=== PATIENT | male | born 1965 | race Caucasian/White ===

== ENCOUNTER → 2017-02-08 14:55 | Outpatient (CLI) | payer BC ==
[2016-02-06 06:11] VITALS: BMI 34.7
[~2017-02-08 14:55] MED LIST: AMBIEN10 MG PO; ARTIFICIAL TEAR15 ML EACH EYE; BACTRIM DS TABL1 TAB PO; CARTIA XT240 MG PO; CATAPRES0.1 MG PO; COUMADIN4 MG PO; COUMADIN6 MG PO; COZAAR50 MG PO; DULCOLAX10 MG/SUPP RC; FISH OIL 1,2001 CA1 PO; FLAGYL250 MG PO; K-DUR20 MEQ PO; LASIX20 MG PO; LEXAPRO10 MG PO; LOMOTIL TABLET1 TAB PO; LONITEN2.5 MG PO; METOPROLOL TAR100 MG PO; MYCOSTATIN CREA15 GM TP; NORVASC10 MG PO; OXYCODONE HCL5 MG PO; PROCARDIA XL60 MG PO; PROTEIN LIQUID30 ML PO; QUESTRAN LIGH4 G/PKT PO; QUESTRAN PACK4 G/PKT PO; TRANSDERM-SCOP1.5 MG TD; TYLENOL W/CODEI1 TAB PO; XANAX0.5 MG PO; ZOCOR10 MG PO; ZYLOPRIM300 MG PO
== END | disposition home or self-care (01) ==
LOC: D.CT 14:55
DX: R04.2 Hemoptysis (principal)

== ENCOUNTER → 2019-03-12 10:23 | Outpatient (CLI) | payer BC ==
[2016-02-06 06:11] VITALS: BMI 34.7
[~2019-03-12 10:23] MED LIST changes: +BUMEX2 MG PO; +FOLBIC RF TABL1 EACH PO; +MELATONIN10 M1 PO; +TIROSINT25 MCG PO; +ZYLOPRIM100 MG PO
--- NOTE | 2019-03-13 17:17 | EC ---
PATIENT:BRYSON DENNY DATE OF SERVICE: 03/12/19 SEX: M MEDICAL RECORD: [id number] DATE OF : [birth year] LOCATION:D. AGE OF PATIENT: 53 ADMISSION DATE: 03/12/19 REFERRING PHYSICIAN: INTERPRETING PHYSICIAN: CHRIS KOEHLER MD ECHOCARDIOGRAM REPORT ECHO CHARGES 4 ECHO COMPLETE Date: 03/12/19 CLINICAL DIAGNOSIS: MURMUR/HTN H/O AORTA DISSECTION REPAIR ECHOCARDIOGRAPHIC MEASUREMENTS (adult normal given) AC root (d.<3.7cm) 4.7 cm LV Septum d (<1.2 cm> 1.7 cm Valve Excursion 2.4 cm LV Septum (systole) 2.1 cm Left Atria (s.<4.0cm> 4.4 cm LVPW d(<1.2cm) 1.6 cm RV (d.<2.3cm) 3.1 cm LVPW (sytole) 2.2 cm LV diastole(<5.6CM) 6.5 cm MV E-F(>70mm/sec) cm LV systole 4.2 cm LVOT Diameter 2.5 cm MV exc.(>10mm) cm Est.ejection fraction (50-75%) % DOPPLER: LVIT cm/sec A 59.0 cm/sec E 71.0 cm/sec LA cm/sec RVSP 38.0 mmHg LVOT 143 cm/sec AOP1/2T 815.0m/s Asc. Ao 220 cm/sec RVOT 71.0 cm/sec RA cm/sec PA 100 cm/sec AV Gradient Peak 19.4 mmHg AV Mean 12.0 mmHg AV Area 2.8 cm MV Gradient Peak 3.0 mmHg MV Mean 1.1 mmHg MV Area cm COMMENTS: OP - HC Coil Machine Operator: 1 SRAVANTHI [place] Front Facer: 1 Dr. Koehler TAPE# PACS Pericardial Effusion N DATE OF SERVICE: FINDINGS: 1. Left ventricular chamber size is mildly dilated. Left ventricular systolic function is normal at 55%. 2. Left atrium is enlarged at 4.4 cm. Right atrium and right ventricular chamber sizes are moderately dilated. 3. Valvular structures: Aortic valve demonstrates calcific aortic sclerosis. No significant aortic stenosis. The remaining valvular structures have normal structure and motion. ECHOCARDIOGRAM REPORT [id number] BRYSON DENNY 4. Doppler interrogation reveals bqhq-jv-qdjanvyu aortic insufficiency, mild mitral regurgitation, mild tricuspid regurgitation. No other valvular deficiency or stenosis. Pulmonary systolic pressure is estimated 38 mmHg. 5. No evidence of pericardial effusion or left ventricular thrombus. TRANSINT:[id number] Voice Confirmation ID: [id number] DOCUMENT ID: [id number] CHRIS KOEHLER MD at 1717 CC: [id number] DICTATION DATE: 03/13/19 1114 CONTACT MANAGER: 03/13/19 1303 DEP CLI 03/12/19 [address] [place] [address]
== END | disposition home or self-care (01) ==
LOC: D.HCCARDIO 03-02 13:00 → D.US 10:23 → D.HCCARDIO 12:30
PROVIDERS: ATTEND Internal Medicine Nephrology
DX: I12.9 Hypertensive chronic kidney disease with stage 1 through stage 4 chronic kidney disease, or unspecified chronic kidney disease (principal); N18.4 Chronic kidney disease, stage 4 (severe); R80.9 Proteinuria, unspecified

== ENCOUNTER → 2019-04-10 08:24 | Outpatient (CLI) | payer BC ==
[2016-02-06 06:11] VITALS: BMI 34.7
[~2019-04-10 08:24] MED LIST changes: -BUMEX2 MG PO; -FOLBIC RF TABL1 EACH PO; -MELATONIN10 M1 PO; -TIROSINT25 MCG PO; -ZYLOPRIM100 MG PO
--- NOTE | 2019-04-16 18:38 | ST ---
PATIENT:BRYSON DENNY MEDICAL RECORD: [id number] SEX: M LOCATION:[facility] ORDER #: ADMISSION DATE: 04/10/19 AGE OF PATIENT: 53 REFERRING PHYSICIAN: INTERPRETING PHYSICIAN: CHRIS NUNEZ MD DATE OF SERVICE: 04/10/2019 INDICATION: Angina, shortness of breath, hypertension and hyperlipidemia. TECHNIQUE: He was exercised on standard Lexiscan protocol. Initially exercise Michael protocol was tried; however, he developed chest pain and severe shortness of breath. He had 31 mCi of sestamibi injected at peak Lexiscan stress. A 10 mCi were used previously for rest images. FINDINGS: Gated SPECT reveals preserved ejection fraction at 59% with good wall motion, thickening and brightening throughout all segments. SPECT imaging Cardiolite was used as myocardial perfusion agent. There are reversible changes inferiorly, anteriorly and apically. This includes the basal, mid, apical anterior segments of basal, mid apical, inferior segments as well as the apex itself. The degree of reversibility is moderate. The amount of myocardium involved is very large. OVERALL IMPRESSION: This is a high risk nuclear stress test with reversible ischemia inferiorly and anteriorly suggestive of multivessel coronary artery disease. We will proceed with coronary angiography as a followup study. TRANSINT:[id number] Voice Confirmation ID: [id number] DOCUMENT ID: [id number] CHRIS NUNEZ MD at 1838 CC: SILAS HUERTA [id number] DICTATION DATE: 04/11/19 1218 BLUEPRINT REPRODUCER: 04/11/19 2255 DEP CLI 04/10/19 [place] [id number] [place] [id number]
== END | disposition home or self-care (01) ==
LOC: D.HCCARDIO 08:24
PROVIDERS: ATTEND Internal Medicine Interventional Cardiology
DX: I20.9 Angina pectoris, unspecified (principal)

== ENCOUNTER 2019-04-23 08:04 | Outpatient (CLI) | payer BC ==
[~2019-04-23] VITALS: Ht 188 cm; Wt 127.3 kg
--- NOTE | ~2019-04-23 | OP ---
PATIENT NAME: BRYSON DENNY MEDICAL RECORD: [id number] :61 LOCATION:D.CAT ADMISSION DATE: SURGEON: CHRIS NUNEZ MD DATE OF OPERATION: 04/23/2019 PROCEDURE: Thoracic aorta angiography. INDICATION: Attempted cardiac catheterization status post thoracic aneurysm repair. No catheter would make it past the thoracic aorta to engage the coronaries. We engaged femoral as well as brachial. From the femoral standpoint, we could get a wire down to the aortic cusp, but no catheter would traverse that far secondary to tortuosity throughout the thoracic aorta and catheter would just not reach that area. We then cannulated brachial on the right. There was extreme change in the anatomy after his repair. The subclavian artery was far to the left, the catheter had to then come all the way back to try to go around the arch and no catheter would reach that either. OVERALL IMPRESSION: Inability to perform cardiac catheterization secondary to extreme tortuosity and extreme large diameter of the thoracic aorta, only medical management for treatment of the coronary artery disease is possible. TRANSINT:[id number] Voice Confirmation ID: [id number] DOCUMENT ID: [id number] CHRIS NUNEZ MD CC: [id number] DICTATION DATE: 04/23/19 1107 APPRAISER TIMBER: 04/23/19 1146 REG [facility] [address] [id number]
--- NOTE | ~2019-04-23 | HEMODYNAMI ---
PATIENT:BRYSON DENNY MEDICAL RECORD: [id number] : 61 LOCATION:[facility] ADMISSION DATE: 04/23/19 Generatedon:04/23/201911:14 Patient name: BRYSON DENNY Patient #: [id number] SS N: : 1965 Date of study: 04/23/2019 Page: Of Hemodynamic Procedure Report Patient Data Patient Demographics Procedure consent was obtained First Name: BRYSON Gender: Male Last Name: DENISHA : 1965 Middle Initial: B Age: 53 year(s) Patient #: [id number] Race: Unknown Additional ID: [id number] Contact details [address]: [address] [place] [address] State: [place] City: [place] Zip code: [address] Admission Admission Data Admission Date: 04/23/2019 Admission Time: 8:04 Admit Source: Other Lab Results Lab Result Date: 04/23/2019 Lab Result Time: 0:00 Biochemistry Name Units Result Min Max BUN mg/dl 63 --(----)-* 7 18 Creatinine mg/dl 5.7 --(----)-* 0.6 1.3 eGFR ml/min 13 *-(----)-- 90 120 AM eGFR ml/min 11 *-(----)-- 90 120 NONAFRICAN CBC Name Units Result Min Max Hemoglobin g/dl 8.9 *-(----)-- 13.5 17.5 Coagulation Name Units Result Min Max INR units 1.82 --(----)-* 0.85 1.17 PT sec 20.4 --(----)-* 11.6 15 Procedure Procedure Types Cath Procedure Diagnostic Procedure Peripheral Cath Diagnostic Procedure Thoracic/Pulmonary Thoracic Angiogram Procedure Description Procedure Date Procedure Date: 04/23/2019 Procedure Start Time: 10:41 Procedure End Time: 11:13 Procedure Staff Name Function Simeon Koehler MD Performing Physician Helio Phillips RT Monitor Migue Mason RN Nurse Steve Nelson RT Scrub Patricia Denton RT Scrub Procedure Data Cath Procedure Fluoroscopy Diagnostic fluoroscopy Total fluoroscopy Time: 4.7 time: 4.7 min min Diagnostic fluoroscopy Total fluoroscopy dose: 437 dose: 437 mGy mGy Contrast Material Contrast Material Type Amount (ml) Isovue 300 25 Entry Location Entry Primary Successful Side Size Upsize Upsize Entry Closure Webster ccessful Closure Location (Fr) 1 (Fr) 2 (Fr) Remarks Device Remarks Femoral Right 5 Fr Exoseal femstop artery to the RFA for safty Brachial Right 6 Fr Manual Brachial artery Short Compression tr band Diagnostic catheters Device Type Used For End Catheter Placement MULTIPACK Pigtail 5 Fr LV Angiography catheter MULTIPACK 3DRC 5Fr Right Coronary catheter Angiography Procedure Complications No complications Procedure Medications Medication Administration Route Dosage 0.9% NaCl I.V. 100 ml/hr Oxygen etCO2 Nasal cannula 2 l/min Heparin Flush Bag added to field 2 bags (1000units/500ml NS) Lidocaine 2% added to field 20 Versed I.V. 1 mg Fentanyl I.V. 50 mcg Hemodynamics Rest HGB: 8.9 (g/dl) Heart Rate: 51 (bpm) Snapshots Pre Cath Intra NCS Post Cath Vital Signs Time Heart Resp SPO2 etCO2 NIBP (mmHg) Rhythm Pain Sedation Rate (ipm) (%) (mmHg) Status Level (bpm) 10:23:47 50 16 90 0 131/73(96) NSR 0 (11) 9(A) , No pain 10:28:03 51 14 88 0 130/70(104) NSR 0 (11) 9(A) , No pain 10:32:52 50 13 89 0 124/74(104) NSR 0 (11) 9(A) , No pain 10:37:08 51 13 85 0.7 125/63(100) NSR 0 (11) 9(A) , No pain 10:41:24 52 12 89 30.7 121/69(98) NSR 0 (11) 9(A) , No pain 10:45:38 51 13 91 14.9 127/66(97) NSR 0 (11) 9(A) , No pain 10:52:11 52 15 90 32.2 136/75(112) NSR 0 (11) 9(A) , No pain 10:56:35 53 15 90 31.5 136/69(110) NSR 0 (11) 9(A) , No pain 11:01:00 51 15 90 9.7 134/68(111) NSR 0 (11) 9(A) , No pain 11:05:59 50 14 90 0 Measuring NSR 0 (11) 9(A) , No pain 11:06:07 51 14 91 0 136/66(107) NSR 0 (11) 9(A) , No pain 11:10:27 51 15 90 13.5 134/75(113) NSR 0 (11) 9(A) , No pain Medications Time Medication Route Dose Verified Delivered Reason Notes Eff ectiveness by by 10:21:46 0.9% NaCl I.V. 100 Migue Migue Per ml/hr Isabella Mason physician RN RN 10:22:09 Oxygen etCO2 2 Migue Migue for low 02 Nasal l/min Lorigan Lorigan sats cannula RN RN 10:22:21 Heparin Flush added 2 Migue Migue used for Bag to bags Lorigan Isabella procedure (1000units/500ml field RN RN NS) 10:22:31 Lidocaine 2% added 20ml Migue Migue for local to vial Lorigan Lorigan anesthetic field RN RN 10:38:50 Versed I.V. 1 mg Migue Migue for Lorigan Lorigan sedation RN RN 10:39:00 Fentanyl I.V. 50 Migue Migue for mcg Lorigan Lorigan sedation RN civil defense director Log Time Note 9:55:23 Helio Phillips RT(R) sent for patient. Start room use. 10:06:00 Admit Source: Other 10:06:20 Procedure status Elective 10:06:24 Time tracking: Regular hours (M-F 7:00 - 5:00) 10:06:29 Plan of Care:Hemodynamics will remain stable., Cardiac rhythm will remain stable., Comfort level will be maintained., Respiratory function will remain adequate., Patient/ family verbilizes understanding of procedure., Procedure tolerated without complication., Recovers from procedure without complications.. 10:15:05 Patient received from Pre/Post Procedure Room to [facility] 2 Alert and oriented. Tansferred to table in Supine position. 10:15:07 Warm blankets applied, and samir hugger turned on for patient comfort. 10:15:08 Signed procedure consent form obtained from patient. 10:15:10 Correct patient and procedure confirmed by team. 10:15:10 ECG and BP/O2 sat monitors applied to patient. 10:21:46 0.9% NaCl 100 ml/hr I.V. was administered by Migue Mason RN; Per physician; 10:22:09 Oxygen 2 l/min etCO2 Nasal cannula was administered by Migue Mason RN; for low 02 sats; 10:22:21 Heparin Flush Bag (1000units/500ml NS) 2 bags added to field was administered by Migue Mason RN; used for procedure; 10:22:31 Lidocaine 2% 20ml vial added to field was administered by Migue Mason RN; for local anesthetic; 10:22:42 Vital chart was started 10:23:34 ECG and BP/O2 sat monitors applied to patient. 10:23:36 Baseline sample Acquired. 10:23:41 Rhythm: sinus rhythm 10:23:42 Full Disclosure recording started 10:24:05 H&P Date Dictated: 04/10/2019 Within 30 days and on chart.. 10:24:10 Pre-procedure instructions explained to patient. 10:24:10 Pre-op teaching completed and patient verbalized understanding. 10:24:13 Family in patients room. 10:24:14 Patient NPO since Midnight. 10:24:48 Is the patient allergic to Iodine/contrast media? No. 10:25:03 Was the patient premedicated? No 10:25:04 Is patient on blood thinner?Yes 10:25:11 Patient diabetic? No. 10:25:13 ----Pre-sedation anethsthesia assessment.---- 10:25:16 Previous problem with sedation/anesthesia? No ? 10:25:19 Snore? Yes 10:25:20 Sleep apnea? Yes 10:25:28 Deviated septum? No 10:25:30 Opens mouth fully? Yes 10:25:32 Sticks out tongue? Yes 10:25:44 Airway obstruction? Yes SOB 10:25:57 Dentures? No ? 10:26:00 Pre procedure: right dorsailis pedis pulse 2+ Normal; easily identifiable; not easily obliterated 10:26:10 Modified Cj's test Ulnar > 7 seconds. 10:26:13 Patient pain scale 0/10 ?. 10:26:24 IV patent on arrival in left antecubital with 0.9% NaCl at O. 10::31 Lab Result : BUN 63 mg/dl :: Lab Result : Creatinine 5.7 mg/dl :: Lab Result : eGFR NONAFRICAN 11 ml/min 10:: Lab Result : eGFR AM 13 ml/min :: Lab Result : Hemoglobin 8.9 g/dl :: Lab Result : INR 1.82 units :: Lab Result : PT 20.4 sec 10:30:37 Lab results completed and on chart. 10:30:40 Right groin area was prepped with chlora-prep and draped in sterile fashion 10::41 Alarms reviewed by R. N. 10:30:41 Sharps counted by scrub and verified by R.N. 10:30:42 Physician arrived 10:31:16 Use device set Femoral Dx 10:31:17 ACIST Syringe (39986) opened to sterile field. 10:31:17 Bag Decanter (2002S) opened to sterile field. 10:31:18 Medline Cath Pack ([id number]) opened to sterile field. 10:31:19 ACIST Hand Control (73306) opened to sterile field. 10:31:21 ACIST Manifold (16970) opened to sterile field. 10:31:22 DIAGNOSTIC Multipack 5Fr catheter set ([id number]) opened to sterile field. 10:31:22 Tegaderm 4 x 4 (1626W) opened to sterile field. 10:31:24 SHEATH 5FR [place] ([id number]) opened to sterile field. 10:31:25 EMERALD Guide Wire (012-488) opened to sterile field. 10:36:48 --------ALL STOP TIME OUT------ 10:36:48 Final Timeout: patient, procedure, and site verified with staff and physician. All members of the team are in agreement. 10:36:50 Right groin site verified by team. 10:36:55 Fire Safety Assessment: A--An alcohol-based skin anteseptic being used preoperatively., C--Open oxygen or nitrous oxide is being used., D--An ESU, laser, or fiber-optic light is being used. 10:36:58 Physical assessment completed. ASA score P 2 - A patient with mild systemic disease as per Simeon Koehler MD. 10:37:58 5) <15 or on dialysis Very severe, or end stage kidney failure. 10:38:37 Maximum allowable contrast does (3.7 X eGFR X 0.75)31 ml. 10:38:42 Sedation plan: IV Moderate Sedation Medication:Versed, Fentanyl 10:38:50 Versed 1 mg I.V. was administered by Migue Mason RN; for sedation; 10:39:00 Fentanyl 50 mcg I.V. was administered by Migue Mason RN; for sedation; 10:41:19 Procedure started. 10:41:53 Local anesthetic to right femoral artery with Lidocaine 2% by Simeon Koehler MD.INITIAL ACCESS ONLY 10:42:18 A 5 Fr sheath was inserted into the Right Femoral artery 10:42:21 Zero performed for pressure channel P1 10:42:25 Zero performed for pressure channel P1 10:43:12 A MULTIPACK Pigtail 5 Fr catheter was advanced over the wire and used for LV Angiography. 10:44:59 GLIDE WIRE ANGLE 260cm (PI8724) opened to sterile field. 10:45:12 Catheter exchanged over wire. 10:45:20 A MULTIPACK 3DRC 5Fr catheter was advanced over the wire and used for Right Coronary Angiography. 10:47:23 Catheter exchanged over wire. 10:47:27 Catheter removed. 10:54:20 PREPARING FOR RIGHT BRACHIAL APPROCH 10:54:35 Right Brachial site verified by team. 10:55:25 SHEATH 5FR [place] ([id number]) opened to sterile field. 10:55:28 EXOSEAL 5Fr (EX500) opened to sterile field. 10:56:39 Local anesthetic to right brachial artery with Lidocaine 2% by Simeon Koehler MD.ADDITIONAL ACCESS 10:58:27 SHEATH 6FR RAIN ([id number]) opened to sterile field. 10:58:43 A 6 Fr Short sheath was inserted into the Right Brachial artery 11:00:30 5 Fr 3drc guide catheter was inserted over the wire 11:02:20 Catheter removed. 11:03:05 unable to gain access to the heart due to anatomy 11:03:31 Sheath removed intact; hemostasis achieved with Exoseal to the Right Femoral artery. 11:03:36 Sheath removed intact; hemostasis achieved with Manual Compression to the Right Brachial artery. 11:03:38 Procedure ended.(Physican Out) 11:04:00 Fluoroscopy time 04.70 minutes. 11:04:11 Fluoroscopy dose: 437 mGy 11:04:11 Flurop Dose total: 437 11:04:16 Contrast amount:Isovue 300 25ml. 11:04:18 Sharps counted by scrub and verified by R.N. 11:04:20 Insertion/operative site no bleeding no hematoma. 11:04:23 Post-op/insertion site Right Femoral artery dressed using a 4 x 4 and Tegaderm. 11:04:27 Post right femoral artery:stable 11:04:28 Post Procedure Pulses reassessed and unchanged 11:04:30 Post procedure: right dorsailis pedis pulse 2+ Normal; easily identifiable; not easily obliterated. 11:04:34 Post-procedure physical assessment completed. ASA score P 2 - A patient with mild systemic disease as per Simeon Koehler MD. 11:04:38 Post procedure rhythm: sinus rhythm 11:04:39 Post procedure instruction explained to patient.Patient verbalizes understanding. 11:04:40 Procedure and supply charges have been captured, reviewed, submitted and are correct. 11:05:09 Procedure type changed to Cath procedure, Diagnostic procedure, Peripheral Cath Diagnostic Procedure, Thoracic/Pulmonary, Thoracic Angiogram 11:09:05 TR band inflated with 18cc of air. 11:09:15 FEMSTOP Gold (V21528) opened to sterile field. 11:10:51 Procedure Complication : No complications 11:12:43 Vital chart was stopped 11:12:43 See physician's report for complete and final results. 11:13:32 Report given to Pre/Post Procedure Room. 11:13:39 Patient transfered to Pre/Post Procedure Room with Stretcher. 11:13:41 Procedure ended. 11:13:41 Full Disclosure recording stopped 11:13:44 End room use (Document Last) Device Usage Item Name Manufacture Quantity Catalog Hospital Part Current Minimal Lot# / Number Charge Number Stock Stock Serial# Code ACIST Acist 1 25135 595150 [id number] 152445 20 Syringe Exhibition A (06396) Systems Inc Bag Microtek 1 622142 00010 712262 5 DecALOSKO Inc. (2002S) Medline Medline 1 [id number] 977085 78621 588731 5 Cath Pack ([id number]) ACIST Hand Acist 1 10623 643305 069631 682899 5 Control Medical (99216) Systems Inc ACIST Acist 1 64108 255033 722642 690274 5 Manifold Medical (17111) Systems Inc DIAGNOSTIC Cardinal 1 TA1056 879360 41441 053643 30 dVisit Health 5Fr catheter set (KJ2254) Tegaderm 4 3M 1 1626W 869188 957976 599395 5 x 4 (1626W) SHEATH 5FR Terumo 2 NJK501 767562 293676 057722 5 [place] (MGZ698) EMERALD Cardinal 1 502455 757883 433967 264111 5 Guide Wire Culturalite (502455) MULTIPACK Cardinal 1 129081 5 Pigtail 5 Health Fr catheter GLIDE WIRE Terumo 1 CL6541 510892 830297 335031 5 ANGLE 260cm (XO5363) MULTIPACK Cardinal 1 571312 5 3DRC 5Fr Health catheter EXOSEAL 5Fr Cardinal 1 EX500 473430 153156 385549 10 (EX500) Health SHEATH 6FR Cardinal 1 [id number] 944410 9230700 166164 5 [facility] ([id number]) FEMSTOP St Cuong 1 G63657 898750 075778 186392 5 [place] ([id number]) Signature Audit [place] Stage Time Signature Unsigned Intra-Procedure 04/23/2019 Helio Phillips RT(Jose) 11:14:44 AM Signatures Performing Physician : Signature : Simeon Koehler MD Date : Time : Monitor : eHlio Phillips RT Signature : Date : Time : Nurse : Migue Mason Signature : RN Date : Time : [address] [place] [address]
[2019-04-23 08:43] VITALS: BP 132/61; Ht 188 cm; Wt 127.3 kg
[2019-04-23] MEDS ORDERED: ZYLOPRIM100 MG PO (08:53)
[2019-04-23] MEDS ORDERED: BUMEX2 MG PO (08:54)
[2019-04-23] MEDS ORDERED: MELATONIN10 M1 PO (08:54)
[2019-04-23] MEDS ORDERED: TIROSINT25 MCG PO (08:55)
[2019-04-23] MEDS ORDERED: FLAGYL250 MG PO (08:55)
[2019-04-23] MEDS ORDERED: FOLBIC RF TABL1 EACH PO (08:56)
[2019-04-23 09:01] LABS: BASOPHILS 0.5 % (0-2); EOSINOPHILS 2.4 % (0-7); HEMATOCRIT 26.3 % (42.0-54.0); HEMOGLOBIN 8.9 g/dL (13.5-17.5); IMMATURE GRANULOCYTES 0.2 % (0-5); LYMPHOCYTES 22.2 % (15-50); MCH 28.5 pg (26.0-34.0); MCHC 33.8 g/dL (31.0-37.0); MCV 84.3 fL (80.0-100.0); MEAN PLATELET VOLUME 9.4 fL (7.4-10.4); MONOCYTES 14.4 % (2-11); NEUTROPHILS 60.3 % (40-80); RBC 3.12 10x6/uL (4.20-6.10); RDW 16.5 % (11.5-14.5); WBC 4.2 10x3/uL (4.8-10.8)
[2019-04-23 09:05] LABS: INR 1.82 (0.85-1.17); PROTIME 20.4 SECONDS (11.6-15.0)
[2019-04-23 09:06] LABS: ANION GAP 17.3 mmol/L (8-16); CREATININE - SERUM 5.7 mg/dL (0.6-1.3); POTASSIUM - SERUM 4.3 mmol/L (3.5-5.1)
[2019-04-23 09:21] LABS: PLATELET COUNT 130 10x3/uL (130-400)
--- NOTE | 2019-04-23 11:25 | NUR ---
PATIENT ARRIVED TO ROOM 7, PLACED ON CM. VSS ON 3L NC. RIGHT BRACHIAL ACCESS SITE WITH TR BAND IN PLACE, NO S/S OF BLEEDING OR HEMATOMA. RIGHT GROIN 5FRENCH EXOSEAL WITH DRESSING IN PLACE, NO S/S OF BLEEDING OR HEMATOMA.
--- NOTE | 2019-04-23 11:40 | NUR ---
PATIENT RESTING, PRESENT AT BEDSIDE. PHYSICIAN AT BEDSIDE TO UPDATE FAMILY. VSS ON 3L NC. RIGHT BRACHIAL TR BAND IN PLACE, NO S/S OF BLEEDING OR HEMATOMA. RIGHT GROIN DRESSING IS CDI, NO S/S OF BLEEDING OR HEMATOMA. NO C/O PAIN, NUMBNESS, OR TINGLING. NO N/V.
--- NOTE | 2019-04-23 12:10 | NUR ---
PATIENT RESTING, WAKES TO VERBAL STIMULI. VSS ON 3L NC. RIGHT GROIN AND RIGHT BRACHIAL SITES SHOW NO S/S OF BLEEDING OR HEMATOMA. NO C/O PAIN, NUMBNESS, OR TINGLING.
--- NOTE | 2019-04-23 12:40 | NUR ---
PATIENT RESTING, VSS ON 2L NC. RIGHT BRACHIAL AND FEMORAL SITES ARE BOTH CDI, WITH NO S/S OF BLEEDING OR HEMATOMA. NO C/O PAIN, NUMBNESS, OR TINGLING.
--- NOTE | 2019-04-23 13:00 | NUR ---
PATIENT AWAKE, HEAD OF BED ELEVATED TO 30 DEGREES. RIGHT FEMORAL AND BRACHIAL SITES ARE CDI, NO S/S OF BLEEDING OR HEMATOMA. 3CC OF AIR REMOVED FROM BRACHIAL BAND, NO S/S OF BLEEDING OR HEMATOMA. NO N/V. NO C/O PAIN, NUMBNESS, OR TINGLING.
--- NOTE | 2019-04-23 13:30 | NUR ---
3CC OF AIR REMOVED FROM BRACHIAL BAND, NO S/S OF BLEEDING OR HEMATOMA. HEAD OF BED ELEVATED TO 90 DEGREES, RIGHT GROIN DRESSING IS CDI, NO S/S OF BLEEDING OR HEMATOMA. PATIENT VOIDED 400ML YELLOW URINE WITHOUT DIFFICULTY. VSS ON 1L NC. NO C/O PAIN, NUMBNESS, OR TINGLING.
--- NOTE | 2019-04-23 14:00 | NUR ---
VSS ON ROOM AIR. RIGHT BRACHIAL BAND IS OFF, DRESSING APPLIED IS CDI, NO S/S OF BLEEDING OR HEMATOMA. RIGHT GROIN DRESSING IS CDI, NO S/S OF BLEEDING OR HEMATOMA. NO C/O PAIN, NUMBNESS, OR TINGLING. IV REMOVED. EDUCATION REGARDING DISCHARGE INSTRUCTIONS AND MEDICATION COMPLIANCE GIVEN TO PATIENT AND SPOUSE, BOTH VOICE UNDERSTANDING.
--- NOTE | 2019-04-23 14:10 | NUR ---
PATIENT TRANSPORTED VIA WHEELCHAIR TO CAR WITH SPOUSE DRIVING, ALL BELONGINGS SENT WITH PATIENT.
== END 2019-04-23 14:10 ==
LOC: D.CATH 08:04
PROVIDERS: ATTEND Internal Medicine Interventional Cardiology
DX: I71.2 Thoracic aortic aneurysm, without rupture (principal); Z98.890 Other specified postprocedural states; I25.10 Atherosclerotic heart disease of native coronary artery without angina pectoris; Z01.812 Encounter for preprocedural laboratory examination

== ENCOUNTER 2020-11-11 07:18 | Day surgery (SDC) | payer BC ==
[~2020-11-11] VITALS: Ht 188 cm; Wt 96.4 kg
--- NOTE | ~2020-11-11 | OP ---
PATIENT NAME: BRYSON MILES MEDICAL RECORD: [id number] :61 LOCATION:[facility] ADMISSION DATE: SURGEON: TANI STANLEY MD DATE OF OPERATION: 11/11/2020 The patient was referred by Dr. Ying. PREOPERATIVE DIAGNOSES: End-stage renal disease, dependence on hemodialysis and mechanical complication of arteriovenous fistula with failure to mature due to stenotic arterial anastomosis and stenosis and occlusion of the proximal cephalic vein and cephalic arch. POSTOPERATIVE DIAGNOSES: End-stage renal disease, dependence on hemodialysis and mechanical complication of arteriovenous fistula with failure to mature due to stenotic arterial anastomosis and stenosis and occlusion of the proximal cephalic vein and cephalic arch. OPERATION PERFORMED: Creation of a brachial artery to translocated basilic vein arteriovenous fistula in the left arm. SURGEON: Tani Stanley MD PREOPERATIVE NOTE: Mr. Miles is a 55-year-old white male patient from [place], who has end-stage renal disease and needs long-term dialysis access. He had an endovascular fistula created in the left arm, but it has failed to reach maturity. He has had attempts at access and dialysis, which did not provide satisfactory dialysis. The patient has been found on recent angiography to have a very small proximal cephalic vein and to have a severe stenosis of the ulnar artery and the endovascular anastomosis has not been able to be angioplastied. The patient has developed good flow through the perforating vein in the antecubital space to the basilic and it is thought that he can be converted to a brachial to translocated basilic vein AV fistula, hopefully just in one stage with good results expected. DESCRIPTION OF PROCEDURE: Under anesthesia, the patient was prepped and draped in a sterile manner and an incision in the antecubital space exposed the basilic vein, which I found to be sclerotic and really unusual for the primary fistula due to trauma of vena punctures. I extended the incision on the medial aspect of the arm over the basilic vein using ultrasound guidance, eventually reaching the axilla and then mobilized the dilated basilic vein and the proximal 3/4s of the arm. I divided tributaries and perforators through or between Vicryl and Hemoclip ligatures. The vein was ligated distally and transected and bevelled, cutaneous sensory nerves were protected as much as possible. The vein was flushed with heparinized saline and treated with topical papaverine and a clamp applied. A site for a new arterial anastomosis was exposed and the brachial artery dissected from the surrounding structures and controlled with doubly looped Silastic tapes. The vein was then placed in a very shallow subcutaneous tunnel, which curved anteriorly. Before coming back to the distal aspect of the incision and the brachial artery. The vein was then flushed again with heparinized saline and the artery was opened and flushed proximally and distally with heparinized saline and end-to-side, end of vein to side of artery anastomosis completed with running 7-0 Prolene. When that was done and the occluding loops and clamps were released, excellent flow immediately developed in the new fistula and the suture line was hemostatic. The patient did have persistent oozing and bleeding throughout the procedure and I did give him 20 OPERATIVE REPORT [id number] BRYSON MILES mcg of DDAVP and 1 unit platelet transfusion. A VENESSA type closed suction drain was left in the wound and brought out through a separate stab incision and attached to suction. The wound was closed with interrupted inverted 3-0 Vicryl and running intracuticular 4-0 Stratafix and Dermabond glue with Maxorb AG and Tegaderm. In addition, a pressure dressing was applied consisting of Kerlix gauze roll and Coban, which I personally applied so as to not be excessively tight and I did note that there was a persistence of pulse, thrill, and bruit after application of the dressing. I did note that there is, I believe persistent retrograde flow in the ulnar artery endovascular fistula and I am uncertain whether this will be a problem list postoperative deep venous hypertension and edema or not. For that reason, I will need to follow him closely in the office. I am going to plan for him to be discharged to home today after he and his family are instructed in drain care and arranged a followup visit for him to my office tomorrow for dressing change and hopefully removal of the VENESSA drain. I have cautioned the patient that he might have a swollen arm due to impaired superficial venous drainage as well as ulnar vein hypertension due to persistence of his endovascular fistula. He was given a prescription today for [place] 5/325, #20. He can take one q.4-6 hours p.r.n. pain. He is to resume or continue all of his other home medications, diet and dialysis schedule. Estimated blood loss 150-200 cc, replaced with 1 unit of platelets as well as DDAVP intraoperatively. One 10 mm diameter flat closed suction drain. No surgical specimen submitted for histopathology. All sponges, instruments and needles were accounted for. TRANSINT:[id number] Voice Confirmation ID: [id number] DOCUMENT ID: [id number] TANI STANLEY MD CC: LATONIA YING [id number] DICTATION DATE: 12/09/20 1235 INCLUSION MANAGER: 12/09/[address] [facility] [place] 11/11/20 [id number] [place] [address]
[~2020-11-11 07:18] MED LIST changes: +BUMEX2 MG PO; +FOLBIC RF TABL1 EACH PO; +MELATONIN10 M1 PO; -METOPROLOL TAR100 MG PO; +METOPROLOL TART50 MG PO; +TIROSINT25 MCG PO; +ZYLOPRIM100 MG PO
[2020-11-11 07:49] LABS: BASOPHILS 0.4 % (0-2); EOSINOPHILS 1.3 % (0-7); HEMATOCRIT 28.9 % (42.0-54.0); HEMOGLOBIN 9.3 g/dL (13.5-17.5); IMMATURE GRANULOCYTES 0.2 % (0-5); LYMPHOCYTE ABS# 0.72 10x3/uL (1.32-3.57); LYMPHOCYTES 13.7 % (15-50); MCHC 32.2 g/dL (31.0-37.0); MCV 102.5 fL (80.0-100.0); MEAN PLATELET VOLUME 11.8 fL (7.4-10.4); MONOCYTES 14.3 % (2-11); NEUTROPHIL ABS# 3.68 10x3/uL (1.78-5.38); NEUTROPHILS 70.1 % (40-80); PLATELET COUNT 133 10x3/uL (130-400); RBC 2.82 10x6/uL (4.20-6.10); RDW 14.7 % (11.5-14.5); WBC 5.3 10x3/uL (4.8-10.8)
[2020-11-11 08:04] LABS: ANION GAP 13.5 mmol/L (8-16); CALCIUM 8.8 mg/dL (8.5-10.1); CARBON DIOXIDE 29.5 mmol/L (21.0-32.0); CREATININE - SERUM 5.6 mg/dL (0.6-1.3); INR 1.33 (0.85-1.17); PROTIME 15.3 SECONDS (11.6-15.0)
[2020-11-11] MEDS ORDERED: PROCARDIA XL60 MG PO (09:33)
[2020-11-11] MEDS ORDERED: TIROSINT100 MCG PO (09:35)
[2020-11-11] MEDS ORDERED: BAYER CHEWABLE81 MG PO (09:35)
[2020-11-11] MEDS ORDERED: LIPITOR80 MG PO (09:37)
[2020-11-11 09:47] VITALS: BP 124/51; Ht 188 cm; Wt 96.4 kg
--- NOTE | 2020-11-11 16:48 | NUR ---
ONE UNIT PLATELETS GIVEN PER ROSY
[2020-11-11] MEDS ORDERED: HYDROCODON-ACE1 EAC7 PO (17:05)
--- NOTE | 2020-11-11 18:40 | NUR ---
DISCHARGED HOME VIA WHEELCHAIR TO PRIVATE VEHICLE WITH SPOUSE
== END 2020-11-11 18:40 | disposition home or self-care (01) ==
LOC: D.OPS 07:18
PROVIDERS: ATTEND Surgery
DX: T82.590A Other mechanical complication of surgically created arteriovenous fistula, initial encounter (principal); N18.6 End stage renal disease; Z99.2 Dependence on renal dialysis